=== PATIENT | female | born 1965 | race Caucasian/White ===

== ENCOUNTER 2023-11-07 10:39 | Emergency (ER) | payer OTHER ==
[~2023-11-07] VITALS: Ht 170.2 cm; Wt 118.8 kg
[~2023-11-07 10:39] MED LIST: ATI.5 PO; HYDR-5122 PO; IMI50 PO; LISI-951 PO
[2023-11-07 10:43] VITALS: BP 144/82; PULSE 61; RESP 17; TEMP 98.2; O2SAT 96
[2023-11-07] MEDS ORDERED: AMOX1TAB8 PO (11:07)
[2023-11-07] MEDS: ACETAMINOPHEN EXTRA STRENGTH 500 MG TAB PO ONE (11:18)
[2023-11-07] MEDS: KETOROLAC 30 MG/ML VIAL IM ONE (11:19)
== END 2023-11-07 11:38 | disposition home or self-care (01) ==
LOC: MED 10:39
DX: K04.7 Periapical abscess without sinus (principal); I10 Essential (primary) hypertension; Z79.899 Other long term (current) drug therapy
CPT/HCPCS: 96372; 99283; J1885